=== PATIENT | female | born 1990 | race Two or more races ===

== ENCOUNTER 2017-04-10 12:04 | Emergency (ER) | payer OTHER ==
[~2017-04-10] VITALS: Ht 154.9 cm; Wt 68.0 kg
[2017-04-10 12:34] VITALS: BP 118/77
--- NOTE | 2017-04-10 12:53 | NUR ---
URINE COLLECTED VIA CLEAN CATCH AND SENT TO LAB
[2017-04-10 12:54] LABS: APPEARANCE,URINE Clear (CLEAR); BILIRUBIN,URINE Negative (NEGATIVE); BLOOD, URINE Trace-lysed Ery/uL (NEGATIVE); COLOR,URINE Yellow (YELLOW); KETONES,URINE Negative (NEGATIVE); LEUKOCYTE ESTERASE ,URINE Small (NEGATIVE); NITRITE, URINE Negative (NEGATIVE); PROTEIN,URINE Negative (NEGATIVE); UGLUCOSE Negative (NEGATIVE); UROBILINOGEN,URINE 0.2 EU/dL (0.2)
[2017-04-10 13:06] LABS: BACTERIA,URINE 1+ /HPF (None Seen); SQUAMOUS EPITHELIAL CELL,UR Few /HPF (None Seen)
== END 2017-04-10 14:16 | disposition home or self-care (01) ==
LOC: ER 12:06
DX: N39.0 Urinary tract infection, site not specified (principal); J02.8 Acute pharyngitis due to other specified organisms; B97.89 Other viral agents as the cause of diseases classified elsewhere; Z90.89 Acquired absence of other organs
CPT/HCPCS: 81001; 84703; 87086; 99284; A4606; Z7610; 81000-TC

== ENCOUNTER 2018-02-16 14:49 | Emergency (ER) | payer OTHER ==
[~2018-02-16] VITALS: Ht 157.5 cm; Wt 68.0 kg
[2018-02-16 15:03] VITALS: BP 127/104
--- NOTE | 2018-02-16 16:11 | NUR ---
Multiple calls No response [facility]
== END 2018-02-16 16:11 | disposition home or self-care (01) ==
LOC: ER 14:53
DX: Z53.21 Procedure and treatment not carried out due to patient leaving prior to being seen by health care provider (principal); Z90.89 Acquired absence of other organs
CPT/HCPCS: A4606; Z7610

== ENCOUNTER 2018-08-01 13:13 | Emergency (ER) | payer MEDICAID, OTHER ==
[~2018-08-01] VITALS: Ht 157.5 cm; Wt 64.4 kg
[2018-08-01 13:32] VITALS: BP 115/71
[2018-08-01] MEDS ORDERED: KETOROLAC TROMETHAMINE 15 MG/ML VIAL ONE ×2 (14:31→14:35)
[2018-08-01] MEDS ORDERED: KETOROLAC TROMETHAMINE INJ 30 MG/ML VIAL ONE (14:35)
[2018-08-01] MEDS: KETOROLAC TROMETHAMINE INJ 60 MG/2 ML VIAL IM ONE (15:07)
== END 2018-08-01 15:11 | disposition home or self-care (01) ==
LOC: ER 13:20
DX: M25.561 Pain in right knee (principal); Z90.89 Acquired absence of other organs
CPT/HCPCS: 73564; 84703; 96372; 99284; J1885 ×3